=== PATIENT | male | born 1965 | race Caucasian/White ===

== ENCOUNTER → 2021-01-14 | Outpatient (CLI) | payer OTHER ==
--- NOTE | 2021-01-15 20:20 | SLS ---
SLEEP STUDY POLYSOMNOGRAPHY REPORT: DATE OF SERVICE: 01/14/2021 This patient is 56 with history of obstructive sleep apnea and he was treated with CPAP therapy in the past for many years. When he came to see me in the office, he was not receiving any treatment and he was relying mainly on energy drinks and he had gained a significant amount of weight. He was interested in going back on CPAP therapy. For that reason I ordered a polysomnogram with the intention of offering the patient CPAP therapy at a later stage. Note that his original diagnosis was made more than 10 years ago through a sleep center in [place], [place]. He is known to have chronic anxiety, chronic depression, chronic back pain. PERTINENT PHYSICAL FINDINGS: Height is 5 feet 6 inches. Weight is 249. BMI 40.5. TECHNICAL DESCRIPTION: The sleep evaluation of the patient consisted of clinical polysomnography, nocturnal respiratory battery, left and right anterior tibialis surface electromyography. The standard montage for the clinical polysomnography included the EEG, EOG, EMG, and EKG. Respiratory battery included measurements of nasal/buccal airflow, thoracic, and/or abdominal effort and intercostal surface EMG. Nocturnal oxyhemoglobin saturations were obtained by finger oximetry. Digital video and audio monitoring were done throughout the entire night to check or parasomnias. STUDY OVERVIEW: Total time in bed was 7 hours and 2 minutes. Total sleep time 6 hours and 9 minutes. Sleep efficiency was 87.3%. Latency to sleep onset 14 minutes. Latency to REM sleep was 77 minutes and the sleep architecture was characterized by % stage I, 40.0% stage II, 0% stage III and 6.4% REM sleep. SLEEP CONTINUITY SUMMARY: The patient had a total of arousals with an arousal index of 58.4. This is considered to be excessively high, and the patient's sleep was quite fragmented. RESPIRATORY SUMMARY: The patient had a total of 108 obstructive apneas, 3 mixed apneas, one central apnea and 320 obstructive hypopneas. The resulting apnea-hypopnea index was 70.2, worse in the supine body position and worse during REM. OXYGENATION ANALYSIS: The patient had a total of 399 oxygen desaturations where the pulse ox dropped by more than 4% with a minimum pulse ox of 76%, and the patient spent approximately 16% of his sleep time with a pulse ox of less than 90%. CARDIAC SUMMARY: Average heart rate was 69, minimum heart rate was 50, maximum heart rate 96. Rhythm was sinus. LIMB MOVEMENT SUMMARY: A total of 69 periodic limb movement activities with an index of 11.2. Video monitoring showed that the patient was doing some sleeptalking at epoch 301 through 303. IMPRESSION: 1. Severe symptomatic obstructive sleep apnea. AHI of 70.2. 2. Excessive sleep fragmentation secondary to obstructive sleep apnea with a high arousal index of 58.4. 3. Nocturnal oxygen saturation secondary to obstructive sleep apnea. 4. Abnormal sleep architecture with over-representation of stage I sleep and diminished stage II, stage III and stage IV. 5. Sleeptalking. 6. Morbid obesity with a BMI of 40.5. 7. Chronic anxiety/depression. 8. Loud snoring. 9. Chronic hypersomnia. 10.Chronic hypersomnia. 11.Chronic back pain. PLAN: 1. Encourage weight loss. 2. Implement good sleep hygiene measures. 3. Ask the patient to come back to the sleep center to undergo an immediate CPAP titration regarding his severe and symptomatic obstructive sleep apnea. For now, we will continue to follow. MMODL / IJN: [id number] /
== END | disposition home or self-care (01) ==
LOC: SLEEP 06:46
PROVIDERS: ATTEND Internal Medicine Critical Care Medicine
DX: G47.33 Obstructive sleep apnea (adult) (pediatric) (principal); E66.01 Morbid (severe) obesity due to excess calories; G89.29 Other chronic pain; M54.9 Dorsalgia, unspecified; F41.8 Other specified anxiety disorders; Z68.41 Body mass index [BMI] 40.0-44.9, adult; Z99.89 Dependence on other enabling machines and devices
CPT/HCPCS: 95810